=== PATIENT | female | born 1940 | race Caucasian/White ===

== ENCOUNTER 2018-02-11 16:18 | Inpatient (IN) | payer MEDICARE, OTHER ==
[2018-02-11] VITALS (26 sets, daily range): BP systolic 56–154; BP diastolic 22–104
[~2018-02-11] VITALS: Ht 152.4 cm; Wt 86.3 kg
--- NOTE | 2018-02-11 17:17 | ER.PDOC ---
General Chief Complaint: General Complaint Stated Complaint: RT SIDE NUMBNESS Time seen by MD: 17:14 Source: patient Exam Limitations: no limitations History of Present Illness Initial Comments Mid chest pain and bilateral upper extremity numbness for 4 days. Patient told by her Oncologist yesterday that she has lung cancer. Severity/Quality: moderate Radiation: no radiation Nitro Today/Relief: 0.4 mg x 1 Associated Symptoms: nausea/vomiting Allergies: Coded Allergies: No Known Allergies (Unverified , 02/11/18) Home Meds Reported Medications Metoprolol Succinate (METOPROLOL SUCCINATE) 25 Mg Tab.er.24h, 25 MG PO DAILY24 02/11/18 Past Medical History Medical History: cancer, hypertension Surgical History: bladder suspension, cholecystectomy, hysterectomy, mastectomy , other Social History Smoking: non-smoker, quit greater than 1 year Alcohol Use: none Drug Use: none Constitutional: no symptoms reported EENTM: no symptoms reported Respiratory: no symptoms reported Cardiovascular: see HPI Gastrointestinal: no symptoms reported Genitourinary: no symptoms reported All Other Systems: Reviewed and Negative Physical Exam General Appearance: No Apparent Distress, WD/WN Neck: Non-Tender, Full Range of Motion, Supple, Normal Inspection Respiratory: chest non-tender, lungs clear, normal breath sounds, no respiratory distress, no accessory muscle use Cardiovascular: Normal Peripheral Pulses, Regular Rate, Rhythm, No Edema, No Gallop, No JVD, No Murmur Gastrointestinal: Normal Bowel Sounds, No Organomegaly, No Pulsatile Mass, Non Tender, Soft Extremities: Normal Range of Motion, Non-Tender, Normal Inspection, No Pedal Edema, No Calf Tenderness, Normal Capillary Refill Neurologic/Psychiatric: car seat upholsterer II-XII NML as Tested, No Motor/Sensory Deficits, Alert, Normal Mood/Affect, Oriented x 3 Skin: Normal Color EKG/XRAY/CT/US EKG: NSR XRAY: chest (Nothing acute) Course Sepsis Screening Results: Posi: POSITIVE SEPSIS RISK Vitals & review Data Vital Sign - Last 24 Hours 02/11/18 02/11/18 02/11/18 16:39 16:39 16:46 Temp 98.3 98.3 98.3 Pulse 114 114 114 Resp 17 18 17 B/P (MAP) 150/104 (119) Pulse Ox 93 93 O2 Delivery Room Air Room Air Departure Time of Disposition: 18:37 Disposition: 09 ADMITTED INPATIENT Impression: Primary Impression: NSTEMI (non-ST elevated myocardial infarction) Condition: Stable Referrals: PCP,UNKNOWN (PCP) PRIMARY CARE PROVIDER Comments Patient admitted by Dr. England after [employer]. Duration or Time Spent with Pa: 60 mins Critical Care Note Total Time (mins): 60 BALBINA NIÑO MD Feb 11, 2018 17:17
[2018-02-11 17:30] LABS: BASOPHIL % 0.1 % (0.0-0.2); EOSINOPHIL # 0.1 10^3/uL (0.0-0.2); EOSINOPHIL % 0.6 % (0.0-5.0); HEMOGLOBIN 14.4 g/dL (12.0-15.0); LYMPHOCYTES # 1.8 10^3/uL (1.0-4.8); LYMPHOCYTES % 18.6 % (24.0-44.0); MEAN CELL HGB 30.4 pg (26-34); MEAN CELL HGB CONCENTRATION 32.5 g/dL (33-37); MEAN CORP VOLUME 93.7 fL (78-100); MEAN PLATELET VOLUME 10.7 fL (7.8-11.0); MONOCYTES # 1.1 10^3/uL (0.3-0.8); MONOCYTES % 10.7 % (5.0-12.0); NEUTROPHIL # 6.9 10^3/uL (1.8-7.7); NEUTROPHILS % 69.8 % (41.0-85.0); WHITE BLOOD CELL 9.8 10^3/uL (4.5-11.0)
[2018-02-11] MEDS ORDERED: NITROSTAT SL PRN (17:30)
--- NOTE | 2018-02-11 17:38 | PCM.EKG ---
[facility] Test Date: 2018-02-11 Test Time: 17:39:59 Pat Name: BOGDAN HOLLIDAY Department: Patient ID: [facility]-[id number] Room: Gender: F [employer] Former: ERASMO : 1940 Requested By: BALBINA NIÑO Order Number: [id number] Reading MD: Balbina NIÑO Measurements Intervals [place] Rate: 117 P: 82 NV: 132 QRS: -5 QRSD: 82 T: 106 QT: 358 QTc: 499 Interpretive Statements Sinus tachycardia Septal infarct, age undetermined T wave abnormality, consider anterolateral ischemia Abnormal ECG No previous ECG available for comparison Electronically Signed On 02-13-2018 12:32:56 CDT by Balbina NIÑO Please click the below link to view image of tracing.
--- NOTE | 2018-02-11 17:41 | DIREP ---
PROCEDURE:CHEST 1 VIEW COMPARISON:[facility] and Spiral CT, CR, XRAY CHEST 2 VWS, 06/09/2017, 11:22 AM. INDICATIONS:chest pain FINDINGS: LUNGS/PLEURA:Low lung volumes. Interstitial thickening throughout the bilateral hemithoraces. Soft tissue attenuation artifact from the anterior chest wall limits evaluation of the lung bases, particularly on the left. No definite airspace consolidation, sizeable pleural effusion or appreciable pneumothorax is identified. VASCULATURE:Normal. Unremarkable pulmonary vasculature. CARDIAC:The heart is not significantly enlarged. MEDIASTINUM:Mediastinal contours are within normal limits with calcifications of the aorta. BONES:Degenerative changes of the spine. OTHER:Surgical clips within the left axillary region with additional surgical clips projecting over the left paramedian aspect of the thorax. CONCLUSION: 1. Limited evaluation of the left lung base due to low lung volumes and soft tissue attenuation from the anterior chest wall. No acute cardiopulmonary abnormality is suspected. If the reported chest pain is located within the left inferior hemithorax, consider dedicated PA and lateral chest radiographs to better evaluate the left lung base. Dictated by: Eugenio Goddard M.D. On 02/11/2018 at 05:37 PM
--- NOTE | 2018-02-11 17:50 | DIREP ---
PROCEDURE:CT HEAD OR BRAIN W/O CONTRAST COMPARISON:None. INDICATIONS:bilateral upper extremity numbness TECHNIQUE:CT images were created without intravenous contrast. FINDINGS: VENTRICLES:The ventricles are normal in size and configuration. CEREBRUM:Normal cerebral morphology with appropriate benavides white matter differentiation. CEREBELLUM:Negative. BRAINSTEM:Negative. BASAL CISTERNS:Negative. HEMORRHAGE:No MASS LESION:No ACUTE INFARCT:No SKULL:Normal. SINUSES:Normal. OTHER:None CONCLUSION:No acute intracranial findings. Dictated by: Bob Lancaster M.D. on 02/11/2018 at 05:48 PM
[2018-02-11] MEDS ORDERED: ASPIRIN ONE ×2 (17:57→19:20)
--- NOTE | 2018-02-11 18:00 | NUR ---
LAB: LAB CALLED WITH RESULTS FROM [facility] OF 12.0. REPORTED TO EDP.
[2018-02-11 18:17] LABS: CALCIUM 9.2 mg/dL (8.4-10.5); CARBON DIOXIDE 29.5 mmol/L (20.0-32)
[2018-02-11] MEDS ORDERED: ASPIRIN PO STA (18:20)
[2018-02-11] MEDS ORDERED: SUBLIMAZE ONE (18:25)
[2018-02-11] MEDS ORDERED: XYLOCAINE ONE ×2 (18:25→18:32)
[2018-02-11] MEDS ORDERED: NITROGLYCERIN 25MG/D5W 250ML 250 ML IV ONE (18:25)
[2018-02-11] MEDS ORDERED: VERSED ONE (18:25)
[2018-02-11] MEDS ORDERED: HEPARIN ONE (18:28)
[2018-02-11] MEDS ORDERED: METO-236 PO (18:29)
--- NOTE | 2018-02-11 18:30 | NUR ---
FOX RAISER: FOX RAISER NOTIFIED OF UPCOMING PROCEDURE. NOTIFIED ICU FOR NEED OF BED AFTER HEART CATH. ICU-NURSE NOTIFIED THIS NURSE THAT THEY WERE ON HOLD AND COULD NOT TAKE ANY ADMITS. EXPLAINED NEED AND SHE SAID SHE WOULD CALL PRECISION CROP MANAGER AND NOTIFY US.
--- NOTE | 2018-02-11 18:30 | NUR ---
HOME MEDS PT STATES "I TAKE A BLOOD PRESSURE PILL AND A PILL FOR ARTHRITIS. I CAN'T THINK OF THE NAME OF THE ARTHRITIS PILL. IT STARTS WITH AN M. I DON'T KNOW HOW MUCH, THOUGH." OTHER HOME MED HAS BEEN RECONCILED IN EMR.
[2018-02-11] MEDS ORDERED: ANGIOMAX IV ONE (18:43)
[2018-02-11] MEDS ORDERED: NS 50ML 50 ML IV ONE (18:43)
--- NOTE | 2018-02-11 18:45 | NUR ---
CONSENT CONSENT FOR LIQUOR GRINDER MILL OPERATOR OBTAINED AT THIS TIME BY THIS NURSE.
[2018-02-11] MEDS ORDERED: NS 1000ML 1,000 ML ONE (18:54)
[2018-02-11] MEDS ORDERED: BRILINTA ONE (19:20)
[2018-02-11] MEDS ORDERED: LASIX ONE (20:07)
[2018-02-11] MEDS ORDERED: VENTOLIN IH ONE (20:12)
--- NOTE | 2018-02-11 20:22 | NUR ---
RECEIVED PATIENT FROM LOG YARD MANAGER TRANSPORTED VIA STRETCHER WITH 2 NURSES. TRANSFERRED PATIENT FROM STRETCHER TO BED. HOOKED TO TELEMETRY. INTRODUCED SELF TO PATIENT. CALL LIGHT IN REACH. TABLE IN REACH. BRIEFLY DISCUSSED TO PATIENT HER THE PLAN OF CARE THIS SHIFT. AMENABLE. DAUGHTER AT BEDSIDE. PT AFEBRILE. SHE DENIED ANY CHEST PAIN OR ANY CONCERNS. HEART RATE ON SINUS TACHYCARDIA RANGING BETWEEN 110-116 BPM. PT ON O2 AT 3L/MIN VIA NASAL CANNULA.
--- NOTE | 2018-02-11 20:30 | NUR ---
HOFF CATHETER INSERTION ASEPTIC TECHNIQUE OBSERVED DURING PROCEDURE. USED 16 FR HOFF. SECURED HOFF TO RIGHT INNER THIGH. NOTED IMMEDIATE OUTPUT OF 350 ML LIGHT LUPE URINE. TIME AND DATED THE HOFF BAG, TO GRAVITY AND BAG NOT TOUGHING THE FLOOR.
[2018-02-11] MEDS: COREG PO SCH (21:00)
[2018-02-11] MEDS: BRILINTA PO SCH (21:00)
[2018-02-11] MEDS ORDERED: COREG ONE (21:22)
[2018-02-11] MEDS: LIPITOR PO SCH (21:24)
--- NOTE | 2018-02-11 21:26 | NUR ---
NON ADMIN MEDICINE BRILINTA 90 MG NON ADMINISTERED. VALERIE BURK FROM VULCANIZED FIBER UNIT OPERATOR ADMINISTERED THIS THOSE AT 1920
--- NOTE | 2018-02-11 21:46 | CCRH ---
DATE OF SERVICE: 02/11/2018 PROCEDURES: 1. Left heart catheterization. 2. Selective coronary angiography. 3. Left ventricular angiography. 4. Percutaneous transluminal coronary angioplasty and drug-eluting stent placement in the proximal LAD. CLINICAL INDICATION: The patient is a 77-year-old female who has been having chest pain on and off for the last 3 days. She went to her primary care doctor who referred her to the ER. In the Emergency Department, an EKG shows sinus tachycardia with some borderline ST elevation in the anterior precordial leads. She had one dose of nitroglycerin and then said that her pain was pretty much gone. First troponin came back at 16 and we recommended catheterization. PROCEDURE IN DETAIL: After informed consent was obtained, the patient was brought emergently to the cardiac label coder and was prepped and draped in the usual sterile fashion. A 6-Iranian sheath was placed in the right radial artery using Seldinger technique. A 5-Iranian Madison catheter was used for selective angiography of the left and right coronary arteries. Left coronary angiogram showed subtotal stenosis in the LAD and a proximal portion. Over a wire, the Madison catheter was then exchanged for a 6-Iranian EBU 3.5 guiding catheter. The guide catheter was then engaged in the left coronary artery. A ChoICE PT coronary wire was then advanced into the LAD across the lesion site. Predilatation was performed with a 2.5 x 20 mm regular balloon. Following this, a 3.0 x 23 mm Xience drug-eluting stent was deployed across the lesion to a peak pressure of 16 atmospheres. Finally, a 3 mm x 15 mm noncompliant balloon was advanced into the stented segment and was inflated to 20 atmospheres twice to cover the entire stent length. After following that over a guidewire, the guide catheter was removed and a 6-Iranian angled pigtail catheter was advanced retrograde into the left ventricle. Left ventricular angiography was performed in the NASSAR projection. Catheters were then removed. The sheath was withdrawn in the cardiac label coder and a TR band was placed for hemostasis. She tolerated the procedure well and there were no complications. RESULTS: Left main coronary artery is normal. It gives rise to an LAD and circumflex. The circumflex is a nondominant vessel. It has mild luminal irregularities, but is free of any occlusive disease. The LAD has a subtotal occlusion in the proximal portion. There is SHIVA grade 1 flow in the [place] LAD preintervention. The right coronary artery is a dominant vessel, which has diffuse luminal irregularities, but no flow limiting disease. The left ventricle was normal size. It is akinetic at the left ventricular apex including the inferior apical and anteroapical haile. The ejection fraction is estimated at 35%. PCI results successful. PCI was performed in the proximal LAD, reducing subtotal occlusion to a 0% residual with placement of a 3.0 x 23 mm Xience drug-eluting stent. The patient was preloaded in the cardiac label coder with Brilinta 180 mg p.o. and she will be transferred in stable condition to the ICU. SRINIVASA GUSTAFSON MD DR: CHIDI/samy JOB# [id number]
--- NOTE | 2018-02-11 21:58 | NUR ---
PHONE CALL TO DR GUSTAFSON PT SUDDENLY FELT NUMBNESS TO HER LEFT FACE, MARKED WEAKNESS, AND HYPOTENSION. MANUAL BP 70/50 MMHG, AUTOMATIC BP 63/48 MMHG. URINE OUTPUT POST HOFF CATHETER INSERTION IS [address] GUSTAFSON RE: ABOVE ASSESSMENT. RECEIVED ORDER TO GIVE NS BOLUS 500 ML OT. RBTO.
--- NOTE | 2018-02-11 21:59 | NUR ---
NS BOLUS STARTED PT IS RESPONSIVE, ALERT BUT WITH MARKED WEAKNESS.
--- NOTE | 2018-02-11 22:00 | NUR ---
MODIFIED TRENDELENBURG PLACED PATIENT ON MODIFIED TRENDELENBURG POSITION TO HELP WITH HYPOTENSION. HOB ELEVATED AT LEAST 20-25 DEGREES FOR PATIENT'S COMFORT. SHE CONFIRMED THAT SHE HAS NO PROBLEM WITH HER CURRENT POSITION. DENIED ANY CHEST PAIN. DENIED ANY CONCERNS. CHECKED URINE OUTPUT. NOTED 150 ML. GOOD PERIPHERAL PULSES. HEART RATE RANGING BET. 80s-90s. CLOSELY MONITORED.
[2018-02-11] MEDS ORDERED: NS 500ML 500 ML IV ONE (22:01)
--- NOTE | 2018-02-11 22:01 | NUR ---
INITIATED TR BAND DEFLATION INITIAL 2 ML DEFLATED FROM TR BAND. PRIOR TO DEFLATION NOTED SWELLING AND HEMATOMA AROUND THE TR BAND. MARKED ITS EDGES ACCORDINGLY USING SKIN MARKER TO SEE IF THE SWELLING AND HEMATOMA WILL SUBSIDE OR GETS WORSE. . SHELLEY CHECKED AND ASSESSED SITE WELL FOR CONFIRMATION. NO ACTIVE BLEEDING NOTED.
[2018-02-12] VITALS (61 sets, daily range): BP systolic 71–143; BP diastolic 27–76
--- NOTE | 2018-02-12 00:04 | NUR ---
PHONE CALL TO DR GUSTAFSON RELAYED THE FOLLOWING ASSESSMENT: BP REMAINED LOW AND TRENDING DOWN EVEN AFTER NS BOLUS. LATEST MANUAL BP 72/40 MMHG, MAP OF 54-57, STAT EKG DONE. SENT COPY TO DR GUSTAFSON. NURSE WOUND MAURA RN, SHELLEY RN CHECKED AND REASSESSED EKG RHYTHM. NOTED LARGE INVERTED T WAVES. DR GUSTAFSON STATED THAT IT IS EXPECTED. I ASKED IF HE HAS ANY ORDER TO ADDRESS LOW BP. HE SAID "NO, IT IS EXPECTED". ASKED IF HE IS OKAY IF THE MAP OF 54-57, HE SAID "YES". NO ORDERS RECEIVED.
--- NOTE | 2018-02-12 00:09 | PCM.EKG ---
[facility] Test Date: 2018-02-12 Test Time: 00:07:21 Pat Name: BOGDAN HOLLIDAY Department: Room: ICU5 A Gender: F Automotive Professional: PARISA : 1940 Requested By: SRINIVASA ENGLAND Order Number: [id number] Reading MD: Srinivasa England Measurements Intervals [place] Rate: 81 P: 65 IA: 112 QRS: -21 QRSD: 96 T: -74 QT: 452 QTc: 525 Interpretive Statements Normal sinus rhythm Septal infarct, age undetermined T wave abnormality, consider anterolateral ischemia Prolonged QT Abnormal ECG No previous ECG available for comparison Electronically Signed On 02-13-2018 11:27:00 CDT by Srinivasa England Please click the below link to view image of tracing.
--- NOTE | 2018-02-12 00:23 | NUR ---
BP 99/38 MMHG MAP 64 PATIENT IS ASLEEP. AFEBRILE. STILL WITH O2 AT 2L/MIN VIA NASAL CANNULA. SPO2 AT 98% PT STATED PRIOR TO HER SLEEP THAT SHE IS WEARING OXYGEN AT HOME DUE TO SLEEP APNEA.
--- NOTE | 2018-02-12 02:10 | NUR ---
TR BAND OFF REMOVED TR BAND. 4X4 DRESSING AND BIO OCCLUSIVE DRESSING PLACED TO INCISION SITE. SWELLING NOTED AROUND THE TR BAND DURING PATIENT'S ARRIVAL HERE IN ICU SUBSIDED. STILL WITH HEMATOMA ABOVE WHERE THE TR BAND WAS PLACED BUT HAS BEEN CONTAINED WITHIN THE MARKED AREA.
--- NOTE | 2018-02-12 02:38 | NUR ---
REPOSITIONED PLACED PATIENT FROM MODIFIED TRENDELENBURG POSITION TO SUPINE POSITION WITH HOB AT 25 DEGREES. PT DENIED ANY PAIN OR CONCERNS. BP WNL 109/49 MMHG, HEART RATE AT 77 BPM, SR WITH T WAVE ABNORMALITY. 1-2 PVCS OBSERVED. WILL CONTINUE TO MONITOR.
--- NOTE | 2018-02-12 03:35 | NUR ---
PATIENT STATUS STILL ASLEEP, SYMMETRICAL CHEST MOVEMENT, NON LABORED BREATHING, IMPROVING LUNG SOUNDS, WHEEZING BECOMES LESSER AND FINER.
--- NOTE | 2018-02-12 04:24 | NUR ---
LEATHER NOVELTY PARTS CUTTER AT BEDSIDE BLOOD EXTRACTION FOR MORNING LABS. TOLERATED WELL
[2018-02-12] MEDS ORDERED: MELO7.5T31 PO (04:56)
[2018-02-12] MEDS ORDERED: METH-3 PO (04:56)
[2018-02-12 05:02] LABS: BASOPHIL % 0.1 % (0.0-0.2); EOSINOPHIL # 0.1 10^3/uL (0.0-0.2); EOSINOPHIL % 1.5 % (0.0-5.0); HEMOGLOBIN 13.3 g/dL (12.0-15.0); LYMPHOCYTES # 1.4 10^3/uL (1.0-4.8); LYMPHOCYTES % 15.6 % (24.0-44.0); MEAN CELL HGB 30.4 pg (26-34); MEAN CELL HGB CONCENTRATION 32.3 g/dL (33-37); MEAN CORP VOLUME 94.3 fL (78-100); MEAN PLATELET VOLUME 10.9 fL (7.8-11.0); NEUTROPHIL # 6.3 10^3/uL (1.8-7.7); NEUTROPHILS % 71.7 % (41.0-85.0); RED CELL DISTRIBUTION WIDTH 14.2 % (11.5-14.5); WHITE BLOOD CELL 8.8 10^3/uL (4.5-11.0)
[2018-02-12 05:15] LABS: CALCIUM 8.2 mg/dL (8.4-10.5); CARBON DIOXIDE 25.9 mmol/L (20.0-32)
--- NOTE | 2018-02-12 06:50 | NUR ---
REPORT TO AM SHIFT ENDORSED PATIENT ACCORDINGLY.
--- NOTE | 2018-02-12 07:00 | NUR ---
RECEIVED REPORT AND PATIENT CARE ASSUMED.
--- NOTE | 2018-02-12 07:05 | CNH ---
DATE OF CONSULTATION: 02/11/2018 CHIEF COMPLAINT: Chest pain. HISTORY OF PRESENT ILLNESS: The patient is a 77-year-old female with a history of lung cancer. She has had previous excision of her left lower lobe. They now tell her that she is forming a mass in her right lower lobe. They have made the diagnosis of lung cancer pending a biopsy. She has been having chest pain and nausea for the last 3 days. She came to the ER today and initial troponin came back at 16. She got 1 nitroglycerin tablet, which eased the pain. Her 12-lead electrocardiogram shows slight ST elevation in leads V2 through V5 consistent with an anterior acute myocardial infarction. CURRENT MEDICATIONS: She takes very few pills. She has some pill she takes for arthritis, but she did not bring her meds with her and she does not know what it is. PHYSICAL EXAMINATION: GENERAL: She is an obese 77-year-old female in no acute distress. VITAL SIGNS: Her blood pressure is 128/89. Heart rate is 113 and the EKG says that this is sinus tachycardia. HEENT: Unremarkable. NECK: Without JVD or bruits. CHEST: Clear. HEART: Rapid and regular, without murmurs, gallops, rubs, or clicks. ABDOMEN: Nontender. EXTREMITIES: Without cyanosis, clubbing or edema. Peripheral pulses are intact and are normal. IMPRESSION: Subacute anterior myocardial infarction with symptoms starting 3 days ago. PLAN: Urgent coronary angiography with PCI if indicated. She understands that there is very slight chance that we could recommend an open heart surgery, but the plan is to get the anterior artery opened percutaneously. SRINIVASA GUSTAFSON MD DR: CHIDI/samy JOB# [id number]
--- NOTE | 2018-02-12 07:45 | NUR ---
ASSESSMENT/ACTIVITY LEVEL B PATIENT REQUIRES ASSISTANCE TO TRANSFER D/T WEAKNESS AND UNSTEADY GAIT. PATIENT S/P HEART CATHETER YESTERDAY. HEART CATH SITE TO RIGHT RADIAL. DRESSING C/D/I. NO INCREASE BRUISING NOTED. RADIAL PULSE 2+, CAP REFILL < 3 SEC, COLOR, WARMTH, AND SENSATION EQUAL TO YOSELYN UPPER EXT. PATIENT DENIES PAIN. NO EDEMA NOTED. LUNG SOUNDS CLEAR YOSELYN. HEART RATE REG.
--- NOTE | 2018-02-12 08:00 | NUR ---
UP TO CHAIR AT BEDSIDE. BREAKFAST TRAY GIVEN, NO DISTRESS NOTED. CALL LIGHT WITHIN EASY REACH.
[2018-02-12] MEDS ORDERED: ASPIRIN ONE (08:30)
[2018-02-12] MEDS ORDERED: COREG ONE (08:30)
[2018-02-12] MEDS: ALDACTONE PO SCH (08:39)
[2018-02-12] MEDS: ASPIRIN EC PO SCH (08:41)
[2018-02-12] MEDS: COREG PO SCH ×2 (08:41→21:10)
[2018-02-12] MEDS: BRILINTA PO SCH ×2 (08:41→21:10)
[2018-02-12] MEDS ORDERED: ALDACTONE PO SCH (09:00)
--- NOTE | 2018-02-12 09:45 | NUR ---
BACK TO BED PATIENT AMBULATED BACK TO BED. NO DISTRESS NOTED. CALL LIGHT WITHIN EASY REACH. HOB ELEVATED 30 DEGREES. SIDE RAILS UP X 2.
--- NOTE | 2018-02-12 10:00 | NUR ---
DISCHARGE PLAN CM VISITED WITH PATIENT AND DAUGHTER CONCERNING PATIENTS DISCHARGE PLAN AND NEED. PATIENT STATED SHE LIVES @ HOME ALONE, BUT SHE HAS GREAT FRIENDS THAT ASSIST HER NEEDED. PATIENT AND HER NEIGHBOR SCHEDULE ALL THEIR APPOINTMENTS ON THE SAME DAYS SO HER NEIGHBOR CAN DRIVE AND TRANSPORT THEM TO WHERE EVER PATIENT NEEDS TO GO. PATIENT STATED SHE IS NO LONGER DRIVING BECAUSE SHE HAD EYE SURGERY AND STATED SHE HAS BEEN GOING TO [place] TO HER ONCOLOGY APPOINTMENTS. PATIENT HAS HAD A HX OF BREAST AND LUNG CA. SHE STATED SHE DOES NOT USE ANY DME FOR ASSISTANCE AND DENIES NEEDING FURTHER DME NEEDS @ THIS TIME. EDUCATION GIVEN TO PATIENT REGARDING HH SERVICES AND BENEFITS DUE TO HOSPITAL ADMISSION AND CURRENT MEDICAL CONDITION. CHOICE LETTER PRESENTED, SIGNED AND PLACED INTO PATIENTS CHART. CM THEN FAXED PATIENTS CLINICAL INFORMATION TO [facility] PER PATIENTS REQUEST. CM THEN NOTIFIED [facility] AND SPOKE TO ANTHONY BURK REGARDING HH REFERRAL AND HANDED OFF REPORT. ANTHONY STATED THAT [facility] WILL FOLLOW UP WITH PATIENT UPON HOSPITAL DISCHARGE. CURRENT GOAL FOR PATIENT IS TO DISCHARGE BACK HOME TO ROUTINE SELF CARE WITH [facility]. CM TO CONTINUE TO FOLLOW PATIENTS PLAN OF CARE AND FOR FURTHER DISCHARGE NEEDS.
--- NOTE | 2018-02-12 17:00 | NUR ---
PATIENT UP TO CHAIR. PATIENT ASSIST OUT OF BED AND AMB TO BSC AND BACK INTO CHAIR. PATIENT C/O CONSTIPATION. DR. GUSTAFSON TO BE NOTIFIED AND REQUEST ORDER FOR LAXATIVE.
--- NOTE | 2018-02-12 17:45 | NUR ---
LACTULOSE ORDER OBTAINED FOR LACTULOSE PO, MEDICATION TO BE ADMINISTER TO PATIENT, SEE EMAR.
[2018-02-12] MEDS: CEPHULAC PO PRN (17:59)
--- NOTE | 2018-02-12 18:16 | NUR ---
PATIENT AMB BACK TO BED. NO DISTRESS NOTED. CALL LIGHT WITHIN EASY REACH.
--- NOTE | 2018-02-12 20:00 | NUR ---
MOBILITY LEVEL B WILL ENCOURAGE SELF CARE ADL'S, UP TO CHAIR, AND AMBULATION TOLERATED.
[2018-02-12] MEDS: LIPITOR PO SCH (21:10)
[2018-02-13] VITALS (53 sets, daily range): BP systolic 87–154; BP diastolic 42–100
--- NOTE | 2018-02-13 02:11 | PNH ---
DATE: 02/12/2018 SUBJECTIVE: The patient feels markedly improved since PCI done yesterday. She has no pains or specific complaints. She is awake and alert. OBJECTIVE: VITAL SIGNS: Blood pressure is 111/78 and her heart rate is 83. Physical exam is unchanged since post-PCI yesterday. LABORATORY DATA: Peak troponin this morning was 25.36 and her potassium is 3.8. ASSESSMENT: Post-urgent PCI for a subacute ST elevation myocardial infarction. PLAN: 1. Continue current medications. Also, add spironolactone 25 mg once daily. 2. She should get out of bed and ambulate today and may well be ready for discharge for tomorrow. SRINIVASA GUSTAFSON MD DR: CHIDI/samy JOB# [id number]
--- NOTE | 2018-02-13 07:00 | NUR ---
RECEIVED BEDSIDE REPORT FROM Vicenta LUCERO RN PT SITTING UP IN BED, 0 DISTRESS NOTED, BEDSIDE TELEMETRY READING SINUS RHYTHM 74, PT TEACHING ON S/S TO REPORT. DENIED PAIN, DENIED SHORTNESS OF BREATH. DENIED NEEDS, FLUIDS OFFERED, TEACHING ON USE OF CALL LIGHT FOR ASSIST, VERBALIZED UNDERSTANDING, YELLOW NON-SKID SOCKS IN PLACE, CALL LIGHT IN REACH.
--- NOTE | 2018-02-13 07:15 | NUR ---
MOBILITY LEVEL B WILL ENCOURAGE SELF CARE ADL'S, UP TO CHAIR, AND AMBULATION TOLERATED.
--- NOTE | 2018-02-13 08:15 | NUR ---
PT UP TO CHAIR WITH BREAKFAST TRAY SELF FEEDING WITHOUT DIFFICULTY.
--- NOTE | 2018-02-13 08:45 | NUR ---
PT BACK TO BED 0 SIGNS OF DISTRESS NOTED, CALL LIGHT IN REACH.
--- NOTE | 2018-02-13 09:00 | NUR ---
DR GUSTAFSON AT BEDSIDE TO DISCUSS TREATMENT PLAN, STATES HE WILL NOT DISCHARGE PT TODAY, PLANS TO ORDER ECHOCARDIOGRAM.
[2018-02-13] MEDS: BRILINTA PO SCH ×2 (09:22→20:35)
[2018-02-13] MEDS: ALDACTONE PO SCH (09:22)
[2018-02-13] MEDS: COREG PO SCH ×2 (09:23→20:36)
[2018-02-13] MEDS: ASPIRIN EC PO SCH (09:23)
--- NOTE | 2018-02-13 11:15 | NUR ---
PT UP TO AMBULATE IN [place] WITH STANDBY ASSIST. PER DR GUSTAFSON ORDERS, STATES SHE HAS NO PAIN, NO DIFFICULTY BREATHING, 0 DISTRESS NOTED. PLACED BACK ON VS MONITORING, VSS.
--- NOTE | 2018-02-13 11:20 | NUR ---
PT UP TO CHAIR WITH LUNCH TRAY SELF FEEDING WITHOUT DIFFICULTY,
--- NOTE | 2018-02-13 12:02 | ECHO ---
DATE OF SERVICE: 02/13/2018 FINDINGS: The left ventricle shows borderline concentric hypertrophy. The left ventricular apex is akinetic. There may be some evidence of thrombus at the left ventricular apex. Right ventricle is of normal size and normal contractility. The mitral and aortic valves are normal. Left ventricular ejection fraction is estimated at 36%. CONCLUSION: 1. Possible left ventricular apical thrombus. 2. Akinetic left ventricular apex. 3. Ejection fraction 36%. SRINIVASA GUSTAFSON MD DR: CHIDI/samy JOB# [id number]
--- NOTE | 2018-02-13 13:27 | NUR ---
PT LYING IN BED 0 SIGNS OF DISTRESS, DENIED NEEDS, CALL LIGHT IN REACH.
--- NOTE | 2018-02-13 16:30 | NUR ---
PT UP TO SIDE OF BED WITH DINNER TRAY, SELF FEEDING WITHOUT DIFFICULTY.
--- NOTE | 2018-02-13 17:11 | NUR ---
PT UP TO CHAIR WITH X1 ASSIST, 0 DISTRESS NOTED, CALL LIGHT IN REACH.
--- NOTE | 2018-02-13 20:00 | NUR ---
MOBILITY LEVEL B WILL ENCOURAGE SELF CARE ADL'S, UP TO CHAIR, AND AMBULATION TOLERATED.
[2018-02-13] MEDS: CEPHULAC PO PRN (20:35)
[2018-02-13] MEDS: LIPITOR PO SCH (20:35)
--- NOTE | 2018-02-13 21:48 | PNH ---
DATE: 02/13/2018 SUBJECTIVE: The patient feels well. She is not having any recurrent chest pain or nausea. She has been pretty much at bed rest since her PCI. OBJECTIVE: VITAL SIGNS: Stable. Blood pressure is maintained in a good range. Heart rate has come down significantly since admission for her [facility]. Physical exam is unchanged. ASSESSMENT: 1. Post-anterior infarct with successful percutaneous coronary intervention of the left anterior descending artery. 2. Severe left ventricular apical akinesis. PLAN: We will get an echocardiogram today to determine whether or not we need to add anticoagulation to guard from LV thrombus. Probably, send her home today. She has already got home health care, so I think we will have enough out of hospital care for her. SRINIVASA GUSTAFSON MD DR: CHIDI/samy JOB# [id number]
[2018-02-14] VITALS (17 sets, daily range): BP systolic 68–221; BP diastolic 33–103
--- NOTE | 2018-02-14 07:00 | NUR ---
RECEIVED REPORT FROM Vicenta LUCERO RN PM SHIFT PT RESTING QUIETLY, 0 APPARENT DISTRESS, BEDSIDE TELEMETRY READING SINUS RHYTHM 72, RESPIRATIONS NON-LABORED, 19, R RADIAL HEART CATH SITE SOFT, 0 EDEMA NOTED, 0 BLEEDING, 0 S/S INFECTION NOTED, MODERATE BRUISING AT SITE. HOFF CATHETER DRAINING TO GRAVITY CLEAR DARK YELLOW URINE. IV SITE 20 GAUGE TO R WRIST, SL. YELLOW NON-SLIP SOCKS IN PLACE CALL LIGHT IN REACH.
--- NOTE | 2018-02-14 07:15 | NUR ---
ACTIVITY LEVEL B Addendum: 02/14/18 at 0849 by WM Adhikari RN NOTE SHOULD READ: MOBILITY LEVEL B
--- NOTE | 2018-02-14 07:30 | NUR ---
MOBILITY LEVEL B-PT UP TO CHAIR WITH BREAKFAST TRAY, SELF FEEDING WITHOUT DIFFICULTY. ORAL CARE COMPLETED.
--- NOTE | 2018-02-14 08:00 | NUR ---
PT UP TO BSC WITH NO RESULTS.
--- NOTE | 2018-02-14 08:30 | NUR ---
HOFF CATHETER DISCONTINUED BALLOON DEFLATED AND REMOVED INTACT, 100 CC CLEAR DARK YELLOW URINE PRESENT IN HOFF BAG. PT DUE TO VOID BY [id number].
[2018-02-14] MEDS: CEPHULAC PO PRN (10:09)
[2018-02-14] MEDS: COREG PO SCH (10:10)
[2018-02-14] MEDS: BRILINTA PO SCH (10:10)
[2018-02-14] MEDS: ASPIRIN EC PO SCH (10:10)
[2018-02-14] MEDS: ALDACTONE PO SCH (10:11)
--- NOTE | 2018-02-14 10:30 | NUR ---
MOBILITY LEVEL-PT AMBULATED X1 STANDBY ASSIST ON ROOM AIR, AROUND 2ND FLOOR, MADE COMPLETE CIRCUIT, STOPPING ONCE TO REST. RETURNED TO ROOM AND PLACED ON VS MONITORING. VSS. PT UP TO CHAIR.
--- NOTE | 2018-02-14 10:50 | NUR ---
DR GUSTAFSON AT BEDSIDE NEW ORDERS RECEIVED, DISCHARGE PT TO HOME, PRESCRIPTIONS WRITTEN, WOULD LIKE PT TO FOLLOWUP WITH HIM IN HIS OFFICE IN 2 WEEKS.
[2018-02-14] MEDS ORDERED: TICA90TA PO (10:53)
--- NOTE | 2018-02-14 11:00 | NUR ---
[facility] NOTIFIED THAT PT WOULD BE DISCHARGED
--- NOTE | 2018-02-14 11:15 | NUR ---
SPOKE WITH PT DAUGHTER ABOUT DISCHARGE, STATED SHE WOULD TAKE HER MOM HOME AND SPEND THE NIGHT WITH HER TONIGHT.
--- NOTE | 2018-02-14 11:30 | NUR ---
IV SITE IN R WRIST AREA DC'D CATHETER INTACT, PRESSURE APPLIED TO SITE, BAND-AID APPLIED TO SITE.
--- NOTE | 2018-02-14 13:30 | NUR ---
DISCHARGE EDUCATION SESSION WITH PT, NEW MEDICATIONS DISCUSSED IN DETAIL, INCLUDING MONOGRAPHS, STRESSED THE IMPORTANCE OF TAKING MEDS PRESCRIBED, KEEPING ALL APPOINTMENTS, AND GETTING IMMEDIATE HELP FOR ANY CHEST PAIN OR DISTRESS.
--- NOTE | 2018-02-14 13:45 | NUR ---
PT TRANSPORTED TO PRIVATE VEHICLE VIA WHEELCHAIR, ACCOMPANIED BY DAUGHTER.
--- NOTE | 2018-02-14 22:42 | DSH ---
DATE OF DISCHARGE: 02/14/2018 DISCHARGE DIAGNOSIS: Subacute anterior myocardial infarction. HISTORY AND HOSPITAL COURSE: The patient was brought to the ER by ambulance with complaints of chest pain and nausea and vomiting. The symptoms began 3 days earlier and she said she thought it was heartburn. On arrival to the hospital, she had an initial troponin of 16 and her anterior wall showed deep T-wave inversions and some residual slight ST elevation in the anterior leads. She was brought urgently to the cardiac denture laboratory technician and underwent cardiac catheterization. She had a subtotal proximal LAD lesion with SHIVA grade 1 flow. PCI was performed with placement of a stent in the proximal LAD and flow was restored to normal. 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 She was transferred to the ICU in stable condition and has been monitored. The initial night of her admission, she was hypotensive with systolic blood pressures in the 70-80 range, but no pressors were determined to be necessary. After that, she became stable and had normal to even slightly elevated blood pressures. On the day of discharge, she is feeling well. She has been out of bed and ambulating around the unit without difficulty. Blood pressure is 167/97 and her pulse is 77 beats per minute and regular. Physical exam is unchanged from admission. Her lungs are clear. Her heart is regular without murmurs or gallops. DISCHARGE MEDICATIONS: 1. Carvedilol 12.5 mg p.o. b.i.d. 2. Aspirin 81 mg p.o. daily. 3. Brilinta 90 mg p.o. b.i.d. 4. Atorvastatin 20 mg p.o. daily. 5. She is also on some home drugs for constipation. ASSESSMENT: She will be discharged today and she has home healthcare already established as she lives by herself. She will follow up with me in the office in 2 weeks and medication adjustments can be made at that time. She has no arbitrary restrictions, physical restrictions at this time. SRINIVASA GUSTAFSON MD DR: CHIDI/samy JOB# [id number]
== END 2018-02-14 13:45 | disposition home health service (06) | DRG 246 ==
LOC: ER 16:18 → EDBD 16:18 → ICU 18:56
PROC: 4A023N7 Measurement of Cardiac Sampling and Pressure, Left Heart, Percutaneous Approach (ICD-10-PCS; principal; 2018-02-11)
PROC: 027034Z Dilation of Coronary Artery, One Artery with Drug-eluting Intraluminal Device, Percutaneous Approach (ICD-10-PCS; 2018-02-11)
PROC: B2111ZZ Fluoroscopy of Multiple Coronary Arteries using Low Osmolar Contrast (ICD-10-PCS; 2018-02-11)
PROC: B2151ZZ Fluoroscopy of Left Heart using Low Osmolar Contrast (ICD-10-PCS; 2018-02-11)
DX: I21.09 ST elevation (STEMI) myocardial infarction involving other coronary artery of anterior wall (principal); I50.23 Acute on chronic systolic (congestive) heart failure; I11.0 Hypertensive heart disease with heart failure; I25.10 Atherosclerotic heart disease of native coronary artery without angina pectoris; M19.90 Unspecified osteoarthritis, unspecified site; I95.9 Hypotension, unspecified; Z90.710 Acquired absence of both cervix and uterus; Z90.49 Acquired absence of other specified parts of digestive tract; Z79.899 Other long term (current) drug therapy; Z85.118 Personal history of other malignant neoplasm of bronchus and lung
CPT/HCPCS: 36415; 70450; 71045; 80048; 80053; 82550; 82553; 83880; 84484; 85025; 85379; 85610; 85730; 93005; 93307; 93458; 99152; 99153; 99291; C1769; C1887; C1894; C9600; J0583; J1644; J2250; J3010; J3490; J7030; J7040; J7613; Q9967; C1725; C1874; C1893; J1940